=== PATIENT | female | born 1980 | race Caucasian/White ===

== ENCOUNTER → 2025-04-30 10:53 | Outpatient (BNVA) | payer OTHER, SELFPAY | PROVIDERS: PCP Student in an Organized Health Care Education/Training Program; Visit Provider Podiatrist Foot & Ankle Surgery | DX: M79.671 Pain in right foot (principal); S93.621A Sprain of tarsometatarsal ligament of right foot, initial encounter; X58.XXXA Exposure to other specified factors, initial encounter | CPT/HCPCS: 73630 ==